=== PATIENT | female | born 1935 | race Caucasian/White ===

== ENCOUNTER 2021-12-07 14:15 | Inpatient (IN) ==
[2021-12-07] MEDS ORDERED: Iopamidol - 370 500 ML MLS IVP ONE (14:21)
[2021-12-07 14:33] LABS: Hematocrit 44.2 % (35.3-44.9); Hemoglobin 14.3 g/dL (11.5-15.4); Mean Corpuscular HGB Conc 32.4 g/dL (31.6-35.5); Mean Corpuscular Hemoglobin 32.2 pg (28.0-33.3); Mean Corpuscular Volume 99.5 fL (83.0-100.0); Mean Platelet Volume 10.7 fL (9.4-12.4); Platelet Count 155 K/mcL (140-400); Red Blood Count 4.44 M/mcL (3.82-4.97); Red Cell Distribution Width 13.8 % (11.5-14.5); White Blood Count 11.1 K/mcL (4.3-11.1)
[2021-12-07] MEDS ORDERED: *HR* Labetalol 20 MG/4 ML SYRINGE IVP ONE (15:11)
[2021-12-07 15:29] LABS: Bilirubin,Urine Negative (Negative); Blood,Urine Negative (Negative); Clarity,Urine Clear (Clear); Color,Urine Yellow (Yellow); Glucose,Urine (UA) Normal (Normal); Ketones,Urine Negative (Negative); Leukocyte Esterase,Urine Negative (Negative); Mucus,Urine Many per lpf (None-Few); Nitrite,Urine Negative (Negative); PH,Urine 5.5 pH Units (5.0-8.0); Protein,Urine 30 mg/dL (Neg-Trace); Specific Gravity,Urine > 1.030 (1.010-1.025); Squamous Epithelial Cell,Urine Few per hpf (None-Few); Urobilinogen,Urine Normal (Normal); WBC,Urine 0-3 per hpf (0-3)
[2021-12-07] MEDS ORDERED: Naloxone 0.4 MG/ML INJ IVP PRN (15:30)
[2021-12-07] MEDS ORDERED: Melatonin 3 MG TABLET PO PRN (15:30)
[2021-12-07 15:49] LABS: BUN/Creatinine Ratio 17 (6-26); Blood Urea Nitrogen 19 mg/dL (8-23); Calcium 9.6 mg/dL (8.6-10.3); Carbon Dioxide 29 mEq/L (23-29); Chloride 106 mEq/L (98-107); Glucose 128 mg/dL (70-105); Osmolality,Calculated 302 (280-300); Potassium 3.6 mEq/L (3.5-5.1); Sodium 144 mEq/L (136-145); Troponin I < 0.03 ng/mL (< 0.04)
[2021-12-07] MEDS: niCARdipine 20 MG/200 ML MLS IVC SCH (18:04)
[2021-12-08 03:31] LABS: Hematocrit 37.6 % (35.3-44.9); Mean Corpuscular HGB Conc 32.2 g/dL (31.6-35.5); Mean Corpuscular Hemoglobin 32.4 pg (28.0-33.3); Mean Corpuscular Volume 100.5 fL (83.0-100.0); Platelet Count 138 K/mcL (140-400); Red Blood Count 3.74 M/mcL (3.82-4.97); Red Cell Distribution Width 14.1 % (11.5-14.5); White Blood Count 10.9 K/mcL (4.3-11.1)
[2021-12-08 03:38] LABS: Hemoglobin 12.1 g/dL (11.5-15.4)
[2021-12-08 03:48] LABS: Calcium 9.1 mg/dL (8.6-10.3); Potassium 3.7 mEq/L (3.5-5.1)
[2021-12-08] MEDS: Aspirin Enteric Coated 81 MG Tablet PO SCH (09:04)
[2021-12-08] MEDS: Metoprolol XL (24 HR) Succ 25 MG TAB.ER.24H PO SCH (12:00)
[2021-12-08] MEDS: niCARdipine 20 MG/200 ML MLS IVC SCH ×3 (21:49→21:51)
[2021-12-09 03:58] LABS: Hematocrit 38.6 % (35.3-44.9); Hemoglobin 12.3 g/dL (11.5-15.4); Mean Corpuscular HGB Conc 31.9 g/dL (31.6-35.5); Mean Corpuscular Hemoglobin 32.4 pg (28.0-33.3); Mean Corpuscular Volume 101.6 fL (83.0-100.0); Mean Platelet Volume 10.8 fL (9.4-12.4); Platelet Count 136 K/mcL (140-400); Red Cell Distribution Width 14.2 % (11.5-14.5); White Blood Count 8.1 K/mcL (4.3-11.1)
[2021-12-09 04:09] LABS: Calcium 8.8 mg/dL (8.6-10.3); Potassium 3.3 mEq/L (3.5-5.1)
[2021-12-09] MEDS ORDERED: *HR* Labetalol 20 MG/4 ML SYRINGE IVP ONE (04:38)
[2021-12-09 05:07] LABS: ABG Base Excess 4 mEq/L (-2 to 3); ABG HCO3 28 mEq/L (21-27); ABG Oxygen Saturation 98 % (95-98); ABG PCO2 41 mmHg (35-45); ABG PH 7.45 pH Units (7.32-7.45); ABG PO2 92 mmHg (85-104); ABG TCO2 29 mEq/L (20-26)
[2021-12-09] MEDS: Metoprolol XL (24 HR) Succ 25 MG TAB.ER.24H PO SCH ×2 (08:10→09:19)
[2021-12-09] MEDS: Aspirin Enteric Coated 81 MG Tablet PO SCH ×2 (08:10→09:20)
[2021-12-09] MEDS: *HR* Labetalol 20 MG/4 ML SYRINGE IVP PRN ×2 (10:01→15:33)
[2021-12-09 10:58] LABS: Amphetamine Screen,Urine Negative ng/mL (Cutoff=1000); Barbiturate Screen,Urine Negative ng/mL (Cutoff=200); Benzodiazepines Screen,Urine Positive ng/mL (Cutoff=200); Cannabinoid Screen,Urine Negative ng/mL (Cutoff = 50); Cocaine Screen,Urine Negative ng/mL (Cutoff= 300); Opiate Screen,Urine Negative ng/mL (Cutoff=300); Phencyclidine Screen,Urine Negative ng/mL (Cutoff=25)
[2021-12-09] MEDS ORDERED: hydrALAZINE 10 MG TABLET PO PRN (16:24)
[2021-12-10 01:40] LABS: Calcium 8.8 mg/dL (8.6-10.3); Potassium 3.8 mEq/L (3.5-5.1)
[2021-12-10] MEDS: *HR* Labetalol 20 MG/4 ML SYRINGE IVP PRN ×2 (02:29→23:23)
[2021-12-10] MEDS: *HR* Enoxaparin 40 MG/0.4 ML SYRINGE SQ SCH (05:37)
[2021-12-10] MEDS: Aspirin Enteric Coated 81 MG Tablet PO SCH (08:35)
[2021-12-10] MEDS: Metoprolol XL (24 HR) Succ 25 MG TAB.ER.24H PO SCH (08:35)
[2021-12-11] MEDS: *HR* Enoxaparin 40 MG/0.4 ML SYRINGE SQ SCH (05:33)
[2021-12-11] MEDS: Metoprolol XL (24 HR) Succ 50 MG TAB.ER.24H PO SCH (08:29)
[2021-12-11] MEDS: Aspirin Enteric Coated 81 MG Tablet PO SCH (08:29)
[2021-12-12] MEDS: *HR* Enoxaparin 40 MG/0.4 ML SYRINGE SQ SCH (06:13)
[2021-12-12] MEDS: Metoprolol XL (24 HR) Succ 50 MG TAB.ER.24H PO SCH (07:44)
[2021-12-12] MEDS: Aspirin Enteric Coated 81 MG Tablet PO SCH (07:44)
[2021-12-12 08:16] VITALS: O2SAT 93
[2021-12-12 10:47] VITALS: BP 155/79; PULSE 86; TEMP 98
== END 2021-12-12 15:45 | disposition home health service (06) | DRG 305 ==
LOC: EMEROOARM 14:15 → 2NNU 14:15 → SUATTDRO 16:31 → 2NNU 17:58 → 3BNU 12-10 15:27
PROVIDERS: ADMIT General Practice; ATTEND Internal Medicine